=== PATIENT | female | born 1985 | race Hispanic/Latino ===

== ENCOUNTER 2022-01-17 12:42 | Emergency (ER) | payer SELFPAY ==
[~2022-01-17] VITALS: Ht 152.4 cm; Wt 64.4 kg
[2022-01-17] MEDS ORDERED: DEXAMETHASONE SOD PHOS 10 MG/1 ML VIAL IM ONE (13:30)
[2022-01-17] MEDS ORDERED: METHOCARBAMOL 750 MG TAB PO ONE (13:30)
[2022-01-17] MEDS ORDERED: METHOCARBAMOL750 MG PO (14:08)
[2022-01-17] MEDS ORDERED: PREDNISONE50 MG PO (14:08)
[2022-01-17] MEDS ORDERED: KETOROLAC TROME10 MG PO (14:08)
== END 2022-01-17 14:45 | disposition home or self-care (01) ==
LOC: ER 12:53
DX: M54.12 Radiculopathy, cervical region (principal); R94.31 Abnormal electrocardiogram [ECG] [EKG]
CPT/HCPCS: 72050; 93005; 99283; J1100